=== PATIENT | female | born 2000 | race Hispanic/Latino ===

== ENCOUNTER 2019-01-23 22:12 | Emergency (ER) | payer OTHER ==
[~2019-01-23] VITALS: Ht 149.9 cm; Wt 57.2 kg
--- OUTSIDE RECORDS SUMMARY | 2019-01-23 22:14 | XMS REPORT ---
Author Author [facility] Address Unknown Phone Unavailable Care Team Providers Care Latex Spooler Name Role Phone Cordelia DOYLE Unavailable Unavailable Problems This patient has no known problems. Allergies, Adverse Reactions, Alerts This patient has no known allergies or adverse reactions. Medications This patient has no known medications. Results Test Description Test Time Test Comments Text Results Atomic Results Result Comments CT BRAIN WO [place] [id number] [place] [address] Patient Name: MARK GRIGSBY MR #: [id number] : 2000 Age/Sex: 16/F Req #: [id number] Adm Physician: Ordered by: MARLON DOYLE MD Report #: [id number] Location: ER Room/Bed: Procedure: [id number] CT/CT BRAIN WO Exam Date: 06/27/17 Exam Time: 1850 REPORT STATUS: Signed History: Comparison studies: None Technique: Axial images were obtained from the skull base to the vertex. Coronal and sagittal reconstructions obtained from the axial data. Findings: Scalp/skull: No abnormalities. No fractures, blastic or lytic lesions. Extra-axial spaces: No masses. No fluid collections. Brain sulci: Appropriate for age. Ventricles: Normal in size and configuration. No hydrocephalus. Parenchyma: No abnormal densities. No masses, hemorrhage, acute or chronic cortical vascular insults. Sellar/suprasellar region: No abnormalities Craniocervical junction: Patent foramen magnum. No Chiari one malformation. IMPRESSION: No abnormalities Signed by: Dr. Benitez Slater M.D. on 06/27/2017 7:27 PM Dictated By: BENITEZ SLATER MD, MD 26 Transcribed By: CHUCK on 06/27/171926 COPY TO: MARLON DOYLE MD CT CERVICAL SPINE WO [place] [address] Patient Name: MARK GRIGSBY MR #: [id number] : 2000 Age/Sex: 16/F Req #: [id number] Adm Physician: Ordered by: MARLON DOYLE MD Report #: [id number] Location: ER Room/Bed: Procedure: [id number] CT/CT CERVICAL SPINE WO Exam Date: 06/27/17 Exam Time: 1850 REPORT STATUS: Signed History: Fall Comparison studies: None Technique: Axial images were obtained through the cervical region.. Coronal and sagittal images reconstructed from the axial data.. Intravenous contrast: None Findings: Airway: Patent. Fractures: None. Soft tissues: No gross abnormalities. Atlantoaxial articulation: Intact. Alignment: Reversal of the usual lordosis at C5 is probably positional. No scoliosis. Cervi comedullary junction: No abnormalities. The foramen magnum is patent. Vertebrae: No infection or neoplasm. Degenerative changes: None. IMPRESSION: 1. No abnormalities. 2. Cannot adequately evaluate for ligament, spinal cord and or vascular abnormalities on this exam. Signed by: Dr. Benitez Slater M.D. on 06/27/2017 7:29 PM Dictated By: BENITEZ SLATER MD, MD 28 Transcribed By: CHUCK on 06/27/171928 COPY TO: MARLON DOYLE MD
[2019-01-23 23:34] LABS: BASOPHILS % 0.4 % (0.0-1.0); EOSINOPHILS # (AUTO) 0.1 (0.0-0.4); EOSINOPHILS % 0.9 % (0.0-6.0); HEMATOCRIT 40.5 % (34.2-44.1); HEMOGLOBIN 13.2 g/dL (12.0-16.0); LYMPHOCYTES # (AUTO) 2.5 (1.0-3.2); LYMPHOCYTES % 23.6 % (18.0-39.1); MEAN CORPUSCULAR HEMOGLOBIN 27.5 pg (28-32); MEAN CORPUSCULAR HGB CONC 32.6 g/dL (31-35); MEAN CORPUSCULAR VOLUME 84.4 fL (81-99); MONOCYTES # (AUTO) 0.7 (0.2-0.8); MONOCYTES % 6.5 % (4.4-11.3); NEUTROPHILS # (AUTO) 7.2 (2.1-6.9); NEUTROPHILS % 67.8 % (38.7-80.0); PLATELET COUNT 328 x10e3/uL (140-360); RED CELL DISTRIBUTION WIDTH 12.5 % (11.7-14.4)
--- NOTE | 2019-01-23 23:38 | Diagnostic Imaging Report ---
EXAMINATION: PA and lateral views of the chest. COMPARISON: None CLINICAL HISTORY: Sharp pains right rib pain with inspiration DISCUSSION: Lines/tubes: None. Lungs: The lungs are well inflated and clear. There is no evidence of pneumonia or pulmonary edema. Pleura: There is no pleural effusion or pneumothorax. Heart and mediastinum: Cardiac silhouette is at the upper limit of normal in size. Pulmonary vasculature is normal. Bones and soft tissues: No acute bony abnormalities. Specifically, no acute abnormalities are noted in the right ribs. IMPRESSION: No acute cardiopulmonary abnormalities. Signed by: Dr. Paresh Craig M.D. on 01/23/2019 11:35 PM
[2019-01-23 23:56] LABS: ALANINE AMINOTRANSFERASE 10 IU/L (0-55); ALKALINE PHOSPHATASE 78 IU/L (40-150); ANION GAP 12.6 mmol/L (8-16); BLOOD UREA NITROGEN 9 mg/dL (7-26); BUN/CREATININE RATIO 12 (6-25); CALCIUM 9.4 mg/dL (8.4-10.2); CARBON DIOXIDE 26 mmol/L (22-29); CHLORIDE 102 mmol/L (98-107); CREATININE, SERUM 0.78 mg/dL (0.57-1.11); EST GLOMERULAR FILTRATION RATE > 60 ML/MIN (60-); GLUCOSE 98 mg/dL (74-118); POTASSIUM 3.6 mmol/L (3.5-5.1); SODIUM 137 mmol/L (136-145)
== END 2019-01-24 00:35 | disposition home or self-care (01) ==
LOC: ER 22:12
DX: R07.89 Other chest pain (principal); M94.0 Chondrocostal junction syndrome [Tietze]
CPT/HCPCS: 36415; 71046; 80053; 85025; 85379; 99283